=== PATIENT | female | born 1950 | race Caucasian/White ===

== ENCOUNTER 2022-11-24 00:26 | Day surgery (SDC) | payer MEDICARE, BC, SELFPAY ==
[2022-11-23 14:06] VITALS: BMI 41.9
[2022-11-24] VITALS (8 sets, daily range): BP systolic 106–137; BP diastolic 49–97; PULSE 65–96; RESP 14–25; TEMP 36.7; O2SAT 95–97; BMI 42.0
[2022-11-24 09:25] LABS: Basophils Absolute Auto 0.1 K/mm3 (0.0-0.1); Basophils Percent Auto 0.9 % (0.2-1.2); Eosinophils Absolute Auto 0.4 K/mm3 (0-0.3); Eosinophils Percent Auto 4.3 % (0-4.4); Hematocrit 38.5 % (37.0-47.0); Hemoglobin 12.1 g/dL (12.0-15.0); Immature Granulocyte Absolute 0.03 K/mm3 (0.00-0.031); Immature Granulocyte Percent A 0.3 % (0-0.5); Lymphocytes Absolute Auto 1.47 K/mm3 (0.9-3.2); Lymphocytes Percent Auto 15.6 % (18.3-44.2); Mean Corpuscular HGB Conc 31.4 g/dl (32-36); Mean Corpuscular Hemoglobin 29.1 pg (26-34); Mean Corpuscular Volume 92.5 fl (80-100); Mean Platelet Volume 11.4 fl (7.4-10.4); Monocytes Absolute Auto 0.6 K/mm3 (0.1-0.6); Monocytes Percent Auto 6.1 % (2.6-8.5); Neutrophils Absolute Auto 6.9 K/mm3 (1.3-6.7); Neutrophils Percent Auto 72.8 % (45.5-73.1); Platelet Count Result 239 k/mm3 (150-375); Red Blood Count 4.16 M/mm3 (4.2-5.4); White Blood Count 9.4 K/mm3 (4.5-10.0)
[2022-11-24 09:35] LABS: Anion Gap 7 mmol/L (8-16); Blood Urea Nitrogen 31 mg/dL (7-17); Calcium 9.1 mg/dL (8.4-10.2); Carbon Dioxide 26 mmol/L (22-30); Chloride 107 mmol/L (98-107); Estimated Glomerular Filt Rate 40; Glucose 155 mg/dL (65-110); Potassium 4.6 mmol/L (3.4-5.0); Sodium 140 mmol/L (137-145)
--- NOTE | 2022-11-24 10:24 | WPDHPUPDATE1 ---
History and Physical Update Update Date/Time: 11/24/22 10:24 History and Physical has been reviewed, including an updated exam of the patient. There are NO changes in the patient's condition. Risks, benefits, and alternatives have been discussed and questions answered. Patient agrees to proceed with procedure.
--- NOTE | 2022-11-24 10:25 | WPDMODSED ---
Moderate Sedation Note-Pt Data Patient Data Diagnosis: Coronary artery disease Present Complaint: Coronary artery disease Procedure to be performed/Plan: Coronary angiography, LHC, +/- PCI Allergies Allergy/AdvReac Type Severity Reaction Status Date / Time propoxyphene Allergy Mild CONVULSIONS Verified 11/24/22 09:06 Home Medications Medication Instructions Recorded Confirmed Type Caltrate 600 plus D 1 tablet PO DAILY 11/23/22 11/23/22 History Lasix 20 mg PO PRN 11/23/22 11/23/22 History Pepcid 20 mg PO DAILY 11/23/22 11/23/22 History amlodipine 5 mg tablet 5 mg PO DAILY 11/23/22 11/23/22 History atorvastatin 20 mg tablet 20 mg PO DAILY 11/23/22 11/23/22 History carvedilol 25 mg tablet 25 mg PO BID 11/23/22 11/23/22 History cholecalciferol (vitamin D3) 2,000 unit PO DAILY 11/23/22 11/23/22 History fluticasone propionate 50 1 spray intranasal PRN 11/23/22 11/23/22 History mcg/actuation nasal spray,suspension glyburide 2.5 mg tablet 2.5 mg PO DAILY 11/23/22 11/23/22 History lisinopril 40 mg tablet 40 mg PO DAILY 11/23/22 11/23/22 History loratadine 10 mg tablet 10 mg PO DAILY 11/23/22 11/23/22 History Current Medications: Active Medications Sodium Chloride (Normal Saline Iv) 500 mls @ 100 mls/hr IV CONT .Q5H CATARINO Sedation/Anesthesia: No previous sedation/anesthesia problems (including family history). [facility] Social History Social History Smoking status: Never smoker Living arrangements: alone Additional living arrangements comments: Daughter-Sarah Metzger Spiritual care concerns: No Mod Sed Physical Exam Physical Exam Pre Procedural Exam: Normal: Appearance, Lungs, Heart Rate, Heart Rhythm, Neuro Exam, Abdomen, Extremities and Skin Hours since solid foods: 12 Hours since liquid intake: 8 Mallampati Classification: class II Internal Medicine - PN: Obj Da Vital Signs Vital Signs: Vital Signs - 24 hr 11/24/22 09:08 Temperature 36.7 C Pulse Rate 65 Respiratory Rate 14 Blood Pressure 106/49 L Pulse Oximetry 95 Oxygen Delivery Room Air Meds/Results Medications: Active Medications Generic Name Dose Route Start Last Admin Trade Name Joshua PRN Reason Stop Dose Admin Sodium Chloride 500 mls @ 100 mls/hr 11/24/22 08:30 Normal Saline Iv IV CONT .Q5H CATARINO Labs 11/24/22 09:11 11/24/22 09:11 Labs: Laboratory Results - last 24 hr 11/24/22 11/24/22 09:11 09:11 WBC 9.4 RBC 4.16 L Hgb 12.1 Hct 38.5 MCV 92.5 MCH 29.1 MCHC 31.4 L RDW 13.0 Plt Count 239 MPV 11.4 H Immature Gran % (Auto) 0.3 Neut % (Auto) 72.8 Lymph % (Auto) 15.6 L [place] % (Auto) 6.1 Eos % (Auto) 4.3 Baso % (Auto) 0.9 Lymph # (Auto) 1.47 [place] # (Auto) 0.6 Eos # (Auto) 0.4 H Baso # (Auto) 0.1 Abs Immat Gran (auto) 0.03 Absolute Neuts (auto) 6.9 H Absolute Nucleated RBC 0.0 Nucleated RBC % 0.0 Sodium 140 Potassium 4.6 Chloride 107 Carbon Dioxide 26 Anion Gap 7 L BUN 31 H Creatinine 1.30 H Estim Creat Clear Calc Not Reportable Estimated GFR 40 L Glucose 155 H Calcium 9.1 ASA Classification/Sedation ASA Classification/Sedation ASA Class: II Emergent: No Risks: Risks, benefits and alternatives explained and patient/family accepted plan for sedation. Patient re-evaluated immediately prior to sedation.
--- NOTE | 2022-11-24 10:26 | WPDCARDPROC ---
Cardiac Cath Procedure Note Date of procedure:: 11/24/22 Performing physician:: CATHETERIZATION LABORATORY REPORT Procedure Date: 11/24/2022 [facility] Consultant: Unruly Melara M.D., [facility]? Referring Physician: Zion Lovell M.D. ? Anesthesia: Versed and Fentanyl were ordered and given in my presence at 10:47, procedure ended at 11:34. Supervision of nurse monitored moderate sedation with Versed and Fentanyl was provided for 47 minutes. Total of Versed 2mg and Fentanyl 50mcg were administered by the Music Department Chair RN Gladys Atkins. Pre-op Diagnosis: Coronary artery disease Post-op Diagnosis: 1. Single vessel coronary artery disease with a significant obstructive stenosis in the mid-distal LAD. Widely patent stent in the proximal-mid LAD. 2. Left ventricular end-diastolic pressure of 25mmHg Procedure(s): 1. Moderate sedation 2. Ultrasound guided access of the right radial artery 3. Ultrasound guided access of the right common femoral artery 4. Coronary angiography 5. Left heart cath 6. Angioseal closure of the right common femoral artery Access Site: Right radial artery Right common femoral artery Brief History and Clinical Indications: Patient is a 72-year-old female with CAD s/p prior PCI who is referred for [facility] for abnormal stress test. All risks, benefits and alternatives to left heart catheterization with or without percutaneous coronary intervention was discussed at length with the patient. Risk of complications including but not limited to bleeding, infection, arrhythmia, stroke, worsening kidney function, blood loss, groin hematoma, limb loss, emergency coronary artery bypass grafting, and even were discussed with the patient and all questions were answered. The patient understood and wished to proceed. Time out called, patient name, date of , medical record number, allergies, procedure performed, identify [facility] Consultant, patient and staff member concurred with accurate data, procedure carried on. Findings: LEFT HEART CATHETERIZATION FINDINGS: 1. Left main: The left main coronary artery is widely patent without any significant obstructive disease. 2. Left anterior descending: There is a widely patent stent in the proximal-mid LAD. There are 2 small caliber diagonal branches that are jailed by the LAD stent, however, with ALFREDO 3 flow throughout the diagonal branches. The mid-distal LAD is tortuous. There is focal 80% stenosis in the mid-distal LAD. 3. Left circumflex: The left circumflex artery and the main marginal branches have mild luminal irregularities without any significant obstructive angiographic disease. 4. Right coronary artery: The RCA is a calcific vessel. The RCA has mild diffuse disease without any significant obstructive angiographic disease. The RCA is the dominant vessel. 5. Left ventricle: A. End-diastolic pressure 25mmHg. B. LV gram deferred. C. No significant gradient across aortic valve on catheter pullback. Description of Procedure: Informed consent signed and placed in the chart. Patient transferred to pathology laboratory aides teacher room. Prepped and draped in usual sterile fashion. 2% lidocaine injected subcutaneously in right wrist area. 22-gauge venipuncture catheter used to access the right radial artery with the Seldinger technique. 6-FR slender sheath placed in right radial artery. Nitroglycerine and Verapamil were given intraarterial through the sheath. Unable to advance Versacore wire into the ascending aorta. Therefore, femoral access pursued. 2% lidocaine in right groin area. Micropuncture needle used to access right common femoral artery with Seldinger technique under fluoroscopic and ultrasound guidance. J wire advanced, micropuncture cannula placed. Right iliofemoral angiogram performed, access confirmed and micropuncture cannula exchanged for 5-FR sheath. 5F FL4 diagnostic catheter engaged Left Main Coronary Artery. 5F FR4 diagnostic catheter engaged Right Coronary Artery. Multiple orthogonal a
--- NOTE | 2022-11-24 14:10 | SUR.PHASEII ---
Dr eMlara here to speak with pt
== END 2022-11-24 15:25 | disposition home or self-care (01) ==
PROVIDERS: PCP Internal Medicine; Visit Provider Internal Medicine
PROC: 4A023N7 Measurement of Cardiac Sampling and Pressure, Left Heart, Percutaneous Approach (ICD-10-PCS; CPT 93452; principal; 2022-11-24 10:00)
PROC: (CPT 36140; 2022-11-24 10:00)
DX: I25.10 Atherosclerotic heart disease of native coronary artery without angina pectoris (principal); R94.39 Abnormal result of other cardiovascular function study; T82.897A Other specified complication of cardiac prosthetic devices, implants and grafts, initial encounter; Y83.8 Other surgical procedures as the cause of abnormal reaction of the patient, or of later complication, without mention of misadventure at the time of the procedure; I25.2 Old myocardial infarction; I10 Essential (primary) hypertension; Z79.82 Long term (current) use of aspirin; E78.5 Hyperlipidemia, unspecified; E66.01 Morbid (severe) obesity due to excess calories; Z68.41 Body mass index [BMI] 40.0-44.9, adult
CPT/HCPCS: 36140; 36415; 80048; 85025; 93458; A9270; C1760; C1769; C1887; C1894; G0269; J1644; J2250; J3010; J7040

== ENCOUNTER 2024-03-04 14:33 | Outpatient (CLI) | payer MEDICARE, BC, SELFPAY ==
--- NOTE | ~2024-03-04 | US_ITS ---
EXAMINATION: US carotid duplex BI DATE: 03/04/2024 15:23 INDICATION: Bilateral carotid stenosis. TECHNIQUE: Grayscale, color Doppler, and pulsed Doppler images of the cervical carotid arteries were obtained. The degree of vessel stenosis is placed in one of the following categories: normal, <50%, 5 0-69%, >=70% but less than near-occlusion, near-occlusion, or total occlusion. Note that percent sten osis relative to normal distal artery lumen diameter is indirectly measured from velocity measurement s as described by Edwardo, et al. Radiology 2003; 229:340-346. COMPARISON: Ultrasound 07/29/2019 FINDINGS: RIGHT: The right common carotid artery (CCA) peak systolic velocity (PSV) is 81 cm/s. The right internal car otid artery (ICA) PSV is 147 cm/s. The right ICA end-diastolic velocity (EDV) is 31 cm/s. The right I CA/CCA PSV ratio is 1.8. Grayscale and color Doppler images yield an estimate of <50% diameter reduct ion from plaque in the ICA. There is multiphasic antegrade flow in the right vertebral artery. LEFT: The left CCA PSV is 93 cm/s. The left ICA PSV is 104 cm/s. The left ICA EDV is 22 cm/s. The left ICA/ CCA PSV ratio is 1.1. Grayscale and color Doppler images yield an estimate of <50% diameter reduction from plaque in the ICA. There is antegrade flow in the left vertebral artery. IMPRESSION: 1. <50% stenosis in the right internal carotid artery. 2. <50% stenosis in the left internal carotid artery. 3. Multiphasic antegrade flow in right vertebral artery suspicious for moderate to severe stenosis of proximal right subclavian artery. Reviewed, dictated and finalized at location A.
== END 2024-03-04 14:34 | disposition home or self-care (01) ==
PROVIDERS: PCP Internal Medicine; Visit Provider Internal Medicine Cardiovascular Disease
DX: I65.23 Occlusion and stenosis of bilateral carotid arteries (principal)
CPT/HCPCS: 93880

== ENCOUNTER 2024-04-16 13:08 | Emergency (ER) | payer MEDICARE, BC, SELFPAY ==
[2024-04-16] VITALS (12 sets, daily range): BP systolic 125–170; BP diastolic 56–95; PULSE 53–74; RESP 12–19; TEMP 36.7; O2SAT 93–99
--- NOTE | ~2024-04-16 | CT_ITS ---
CTA brain carotid Ordering provider: Vero Faye MD History: . stroke . Comparison: None. Technique: CT angiogram head and neck was performed following timed intravenous injection of contrast . Thin slice axial images and reformatted coronal images were obtained. Three dimensional reformatted images of the brain were also obtained using a [employer] workstation. Radiation reduction technique utilized. The dose-length product was 1643.15 mGy-cm. 100 mL Omnipaque 350 was given IV. FINDINGS: HEAD: --ANTERIOR AND MIDDLE CEREBRAL ARTERIES AND BRANCHES: Normal caliber and contour. --INTERNAL CAROTID ARTERIES: Mild atheromatous disease but no significant stenosis. No occlusion. --BASILAR ARTERY AND BRANCHES: Normal caliber and contour. No atheromatous disease. --POSTERIOR CEREBRAL ARTERIES: Normal caliber and contour --POSTERIOR COMMUNICATING ARTERIES: Both continues as posterior cerebral arteries. --ANEURYSM: None visualized. --BRAIN: Mild brain atrophy with deep white matter ischemic changes. --BONES AND SUPERFICIAL SOFT TISSUES: Normal. --PARANASAL SINUSES AND MASTOIDS: Left maxillary sinus disease. NECK: --RIGHT CERVICAL CAROTID SYSTEM: Mild atheromatous disease of the carotid bulb and proximal internal carotid artery without significant stenosis. Percent stenosis per NASCET criteria is 60%. No carotid dissection. Otherwise, no significant atheromatous disease or stenosis of the cervical carotid syste m. Kink is seen in the area due to tortuosity with severe narrowing in the area of the kink reaching up to 60%. --LEFT CERVICAL CAROTID SYSTEM: Mild atheromatous disease of the carotid bulb and proximal internal c arotid artery without significant stenosis. Percent stenosis per NASCET criteria is 50%. No carotid dissection. Kink is seen in the area due to tortuosity with severe narrowing in the area of the kink reaching up to 80%. Otherwise, no significant atheromatous disease or stenosis of the cervical carotid system. --VERTEBRAL ARTERIES: Dominant left vertebral artery. Otherwise, Normal caliber and contour. --VISUALIZED AORTIC ARCH AND BRANCHING VESSELS: Mild atheromatous disease but no significant stenosis . Groundglass appearance seen in both lungs suggestive of pneumonitis versus edema. --SOFT TISSUES: Normal. --CERVICAL SPINE: Age appropriate degenerative changes. IMPRESSION: 1. CTA head and neck. Percent stenosis per NASCET criteria is 60% on the right side and 80% on the left side Reviewed, dictated and finalized at location A. IMPRESSION: 1. CTA head and neck. Percent stenosis per NASCET criteria is 60% on the righ t side and 80% on the left side
--- NOTE | 2024-04-16 13:18 | ECG_ITS ---
Test Date: 2024-04-16 13:58:36 Measurements Intervals [place] Rate: 57 P: 25 [place]: 170 QRS: -25 QRSD: 90 T: -9 QT: 388 QTc: 380 Interpretive Statements SINUS BRADYCARDIA LOW QRS VOLTAGE IN PRECORDIAL LEADS [QRS DEFLECTION < 1.0 mV IN CHEST LEADS] VOLTAGE CRITERIA FOR LVH [MEETS CRITERIA IN ONE OF: R(aVL), S(V1), R(V5), R(V5/V6)+S(V1)] POSSIBLE ANTERIOR MYOCARDIAL INFARCTION , OF INDETERMINATE AGE [30 ms Q WAVE IN V3/V4, OR R < 0.2 mV IN V4] No previous ECG available for comparison Electronically Signed On 04-17-2024 11:43:45 CDT by Unruly Melara M.D.
[2024-04-16 13:59] LABS: Basophils Absolute Auto 0.1 K/mm3 (0.0-0.1); Basophils Percent Auto 1.1 % (0.2-1.2); Eosinophils Absolute Auto 0.2 K/mm3 (0-0.3); Eosinophils Percent Auto 3.1 % (0-4.4); Hematocrit 38.2 % (37.0-47.0); Hemoglobin 12.1 g/dL (12.0-15.0); Immature Granulocyte Absolute 0.02 K/mm3 (0.00-0.031); Immature Granulocyte Percent A 0.3 % (0-0.5); Lymphocytes Absolute Auto 1.34 K/mm3 (0.9-3.2); Lymphocytes Percent Auto 17.1 % (18.3-44.2); Mean Corpuscular HGB Conc 31.7 g/dl (32-36); Mean Corpuscular Hemoglobin 29.4 pg (26-34); Mean Corpuscular Volume 92.9 fl (80-100); Mean Platelet Volume 10.5 fl (7.4-10.4); Monocytes Absolute Auto 0.4 K/mm3 (0.1-0.6); Monocytes Percent Auto 4.5 % (2.6-8.5); Neutrophils Absolute Auto 5.8 K/mm3 (1.3-6.7); Neutrophils Percent Auto 73.9 % (45.5-73.1); Platelet Count Result 231 k/mm3 (150-375); Red Blood Count 4.11 M/mm3 (4.2-5.4); Red Cell Distribution Width 13.1 % (11.5-14.5); White Blood Count 7.8 K/mm3 (4.5-10.0)
[2024-04-16 14:14] LABS: Alanine Aminotransferase 12 U/L (6-35); Albumin Level 4.2 g/dL (3.5-5.1); Alkaline Phosphatase 97 U/L (38-126); Anion Gap 10 mmol/L (4-12); Aspartate Amino Transferase 20 U/L (14-36); Bilirubin,Total 0.4 mg/dL (0.2-1.3); Blood Urea Nitrogen 34 mg/dL (7-17); Calcium 9.3 mg/dL (8.4-10.2); Carbon Dioxide 21 mmol/L (22-30); Chloride 112 mmol/L (98-107); Estimated Glomerular Filt Rate 44; Glucose 176 mg/dL (65-110); Potassium 4.3 mmol/L (3.4-5.0); Sodium 143 mmol/L (137-145)
--- NOTE | 2024-04-16 14:43 | ED.DIZZY ---
HPI - Dizziness General Chief Complaint: Dizziness Stated Complaint: dizzy Time Seen by Provider: 04/16/24 14:31 History of Present Illness HPI Narrative: Patient is a 74 year old female with history of arthritis, sciatica, CAD, HTN, HLD here with dizziness. Patient notes that between 6-8:30 AM today she had 3 episodes of dizziness. The first occured when she went from laying down to standing to try and walk to the bathroom, lasted about 2 minutes, improved when she laid down in bed. She described it as feeling like the room and her head were spinning. She notes that she rolled over in bed and it felt like the symptoms reoccurred. Also only lasting for a few minutes. She tried to get out of the bed and a third episode occurred prompting her to call her daughter and her doctor. Her physician recommended she come into the ER for evaluation of possible stroke. She notes that she was diagnosed with vertigo about 40 years ago and had similar symptoms at that time and was on antivert. She has had 4-5 episodes which were much milder than today over the last 40 years since her first diagnosis. She denies numbness or weakness in arms or legs. She does note that about 6 months ago she had an episode where she was unable to talk when she tried to call her friend on the phone. It rapidly resolved, she ended up telling her primary doctor about it on her next visit, she had carotid ultrasounds done and has never had brain imaging. She does state her lower back pain and sciatica has been worse recently with the sciatica going down her left leg. Related Data Home Medications Medication Instructions Recorded Confirmed Caltrate 600 plus D 1 tablet PO DAILY 11/23/22 11/23/22 Lasix 20 mg PO PRN 11/23/22 11/23/22 Pepcid 20 mg PO DAILY 11/23/22 11/23/22 amlodipine 5 mg tablet 5 mg PO DAILY 11/23/22 11/23/22 atorvastatin 20 mg tablet 20 mg PO DAILY 11/23/22 11/23/22 carvedilol 25 mg tablet 25 mg PO BID 11/23/22 11/23/22 cholecalciferol (vitamin D3) 2,000 unit PO DAILY 11/23/22 11/23/22 fluticasone propionate 50 1 spray intranasal PRN 11/23/22 11/23/22 mcg/actuation nasal spray,suspension glyburide 2.5 mg tablet 2.5 mg PO DAILY 11/23/22 11/23/22 lisinopril 40 mg tablet 40 mg PO DAILY 11/23/22 11/23/22 loratadine 10 mg tablet 10 mg PO DAILY 11/23/22 11/23/22 Allergies Allergy/AdvReac Type Severity Reaction Status Date / Time propoxyphene Allergy Mild CONVULSIONS Verified 11/24/22 09:06 Review of Systems Review of Systems: All systems reviewed & are unremarkable except as noted in HPI and below PMFSH Social History Social History Smoking status: Never smoker Living arrangements: alone Additional living arrangements comments: Daughter-Sarah Metzger Spiritual care concerns: No Exam Narrative: GENERAL: Well-appearing, well-nourished, and in no acute distress. HEAD: Normocephalic, atraumatic. EYES: PERRLA and EOMI. ENT: Nares clear. Mucous membranes moist. NECK: Supple. CHEST: Clear to auscultation. No respiratory distress. HEART: Regular rate and rhythm. Normal peripheral pulses. ABDOMEN: Soft, nontender, nondistended. EXTREMITIES: Normal range of motion. No edema. SKIN: Warm, dry, no rash. NEURO: No upper extremity drift, no sensory deficits bilateral upper extremities. No reproducible nystagmus present. No facial droop. She does appear to have unilateral left lower extremity weakness, this is the location of her known sciatica and she is unsure if it is due to pain or her limb actually being weak. Alert and oriented x3. PSYCH: Normal mood and affect. Course Course Emergency Course: Chart review performed. Patient here with dizziness today. Triage vitals show HTN, otherwise normal. Minimal history/visits in our system. She appears to have a cardiac cath on 11/24/22. They note a widely patent stent in the LAD. Patient seen evaluated, nontoxic appearing. She had 3 episodes of d
--- NOTE | 2024-04-16 15:44 | PC.NURSE ---
Call lab and spoke w/Adrryl to add on troponin I.
[2024-04-16 16:07] LABS: Troponin I < 0.012 ng/mL (0.000-0.034)
--- NOTE | 2024-04-16 16:50 | ECG_ITS ---
Test Date: 2024-04-16 17:11:27 Measurements Intervals [place] Rate: 56 P: 24 [place]: 162 QRS: -25 QRSD: 94 T: -14 QT: 388 QTc: 377 Interpretive Statements SINUS BRADYCARDIA VOLTAGE CRITERIA FOR LVH [MEETS CRITERIA IN ONE OF: R(aVL), S(V1), R(V5), R(V5/V6)+S(V1)] Compared to ECG 04/16/2024 13:58:36 No significant changes Electronically Signed On 04-17-2024 11:47:37 CDT by Unruly eMlara M.D.
[2024-04-16] MEDS: MECLIZINE HCL 25 MG TABLET PO (17:02)
[2024-04-16 17:27] LABS: Appearance Urine Clear (Clear); Bilirubin Urine Negative (Negative); Blood Urine Negative (Negative); Color Urine Yellow (Yellow); Glucose Urine UA Negative (Negative); Ketones Urine Negative (Negative); Leukocyte Esterase Ur Negative LEU/UL (Negative); Nitrate Urine Negative (Negative); Protein Urine Negative (Negative); Specific Grav Ur 1.025 (1.001-1.035); Urobilinogen Urine 0.2 mg/dL (<2.0)
[2024-04-16 17:37] LABS: Add Urine Microscopic? NO
[2024-04-16 17:46] LABS: Troponin I < 0.012 ng/mL (0.000-0.034)
[2024-04-16] MEDS: ACETAMINOPHEN 500 MG TABLET 1000 MG PO (19:00)
== END 2024-04-16 20:15 | disposition home or self-care (01) ==
PROVIDERS: Emergency Medicine; Emergency Provider Student in an Organized Health Care Education/Training Program; PCP Internal Medicine
DX: I65.23 Occlusion and stenosis of bilateral carotid arteries (principal); R42 Dizziness and giddiness; I25.10 Atherosclerotic heart disease of native coronary artery without angina pectoris; I10 Essential (primary) hypertension; E78.5 Hyperlipidemia, unspecified
CPT/HCPCS: 36415; 70496; 70498; 80053; 81003; 84484; 85025; 93005; 99284; A9270; Q9967